=== PATIENT | male | born 1970 | race Caucasian/White ===

== ENCOUNTER 2017-06-24 04:51 | Emergency (ER) | payer BC ==
[2017-06-24] MEDS ORDERED: SODIUM CHLORIDE 0.9% 1,000 ML IV STA (04:54)
[2017-06-24 04:59] VITALS: RESP 18; TEMP 97.8
[2017-06-24 05:08] LABS: Glucose,Whole Blood 101 mg/dL (75-99)
[2017-06-24] MEDS ORDERED: diphenhydrAMINE 50 MG/ML 1 ML VIAL IVP STA (05:11)
--- NOTE | 2017-06-24 05:15 | ED ---
General Adult HPI - General Chief complaint: Altered Mental Status Stated complaint: Seizure Time Seen by Provider: 06/24/17 04:54 Source: patient, RN notes reviewed Mode of arrival: EMS Limitations: altered mental status - History of Present Illness Initial comments: 46-year-old male history of bipolar depression presents for evaluation of altered mental status. Patient called EMS, he had an episode where he cannot feel he was in his right mind, according to family members she was curled up in a ball in the basement. He does have history of bipolar depression, he is on lithium and antipsychotic medications. He does use edible marijuana, he admits to taking a full dose of edible marijuana earlier in the evening. According to EMS, patient has had tremor and involuntary movements throughout transport. Vital signs were stable. Patient has no pain complaints. Denies headache. Denies vision changes. Denies any focal weakness. According to EMS there was concern for seizure activity, patient didn't appear postictal after the generalized shaking and abnormal movements. - Related Data Home Medications Medication Instructions Recorded Confirmed Unable To Assess [Unable to Assess] 06/24/17 06/24/17 Allergies Allergy/AdvReac Type Severity Reaction Status Date / Time No Known Allergies Allergy Verified 06/24/17 04:59 Review of Systems ROS Statement: Those systems with pertinent positive or pertinent negative responses have been documented in the HPI. ROS Other: All systems not noted in ROS Statement are negative. Past Medical History Additional Past Medical History / Comment(s): brain lesions History of Any Multi-Drug Resistant Organisms: None Reported Past Surgical History: Unable to Obtain Past Psychological History: Bipolar Smoking Status: Former smoker Past Alcohol Use History: None Reported Past Drug Use History: None Reported General Exam Limitations: altered mental status General appearance: lethargic Head exam: Present: atraumatic, normocephalic Eye exam: Present: normal appearance, PERRL, EOMI ENT exam: Present: mucous membranes dry Neck exam: Present: normal inspection. Absent: tenderness, meningismus Respiratory exam: Present: normal lung sounds bilaterally. Absent: respiratory distress Cardiovascular Exam: Present: regular rate, normal rhythm GI/Abdominal exam: Present: soft. Absent: distended, tenderness Extremities exam: Present: normal inspection, normal capillary refill. Absent: pedal edema Neurological exam: Present: alert, oriented X3, CN II-XII intact, other (No focal deficits, patient does have dystonic movements of the jaw and tongue.). Absent: motor sensory deficit Skin exam: Present: warm, dry, intact. Absent: cyanosis, diaphoretic Course Vital Signs 06/24/17 04:54 Temperature 97.8 F Pulse Rate 76 Respiratory 18 Rate Blood Pressure 124/84 O2 Sat by Pulse 96 Oximetry - Reevaluation(s) Reevaluation #1: 06/24/17 06:29 On reevaluation, patient is complaining of jaw pain, no other complaints. Patient is accompanied by sister who lives with him and helps take care of him. He does have a psychiatrist, as well as a neurologist that he follows with. Patient movements are chronic, he has known dystonic reaction to his psychiatric medications. According to his sister these are at baseline. EKG Findings - EKG Comments: EKG Findings:: EKG shows normal sinus rhythm, ventricular rate 77, AK interval 176, castration 80, QTC 427, no signs of arrhythmia or ischemia Medical Decision Making - Medical Decision Making 46-year-old male presents with abnormal movements, and episodes of generalized shaking. Patient is alert during these episodes, low suspicion for seizure activity. Laboratory studies are obtained which show normal CBC, lithium level which is therapeutic, electrolytes within normal limits, lactic acid is normal. This goes against tonic-clonic seizure. Head CT negative for acute intracranial pathology. Patient has good outpatient follow-up. According to his sister, he's had episodes similar to this in the past 3 days, days without sleeping and then he sleeps for 16-18 hours. Patient and his sister would prefer to be discharged so he can rest, he will follow-up with his neurologist and psychiatrist. Return with any worsening or changing symptoms. - Lab Data Result diagrams: 06/24/17 05:02 06/24/17 05:02 Lab Results 06/24/17 06/24/17 06/24/17 Range/Units 05:02 05:02 05:02 WBC 9.3 (3.8-10.6) k/uL RBC 5.08 (4.30-5.90) m/uL Hgb 16.1 (13.0-17.5) gm/dL Hct 49.3 (39.0-53.0) % MCV 97.1 (80.0-100.0) fL MCH 31.8 (25.0-35.0) pg MCHC 32.7 (31.0-37.0) g/dL RDW 12.3 (11.5-15.5) % Plt Count 419 (150-450) k/uL Neutrophils % 42 % Lymphocytes % 42 % Monocytes % 7 % Eosinophils % 5 % Basophils % 1 % Neutrophils # 3.9 (1.3-7.7) k/uL Lymphocytes # 3.9 (1.0-4.8) k/uL Monocytes # 0.6 (0-1.0) k/uL Eosinophils # 0.5 (0-0.7) k/uL Basophils # 0.1 (0-0.2) k/uL Sodium 144 (137-145) mmol/L Potassium 4.4 (3.5-5.1) mmol/L Chloride 106 (98-107) mmol/L Carbon Dioxide 25 (22-30) mmol/L Anion Gap 13 mmol/L BUN 20 (9-20) mg/dL Creatinine 1.10 (0.66-1.25) mg/dL Est GFR (MDRD) Af Amer >60 (>60 ml/min/1.73 sqM) Est GFR (MDRD) Non-Af >60 (>60 ml/min/1.73 sqM) Glucose 111 H (74-99) mg/dL POC Glucose (mg/dL) (75-99) mg/dL POC Glu Administrative Assistant Data Entry ID Plasma Lactic Acid Leif 1.6 (0.7-2.0) mmol/L Calcium 9.7 (8.4-10.2) mg/dL Total Bilirubin 0.3 (0.2-1.3) mg/dL AST 24 (17-59) U/L ALT 47 (21-72) U/L Alkaline Phosphatase 83 (38-126) U/L Total Protein 7.5 (6.3-8.2) g/dL Albumin 4.5 (3.5-5.0) g/dL [place] 0.6 mmol/L Serum Alcohol <10 mg/dL 06/24/17 Range/Units 05:02 WBC (3.8-10.6) k/uL RBC (4.30-5.90) m/uL Hgb (13.0-17.5) gm/dL Hct (39.0-53.0) % MCV (80.0-100.0) fL MCH (25.0-35.0) pg MCHC (31.0-37.0) g/dL RDW (11.5-15.5) % Plt Count (150-450) k/uL Neutrophils % % Lymphocytes % % Monocytes % % Eosinophils % % Basophils % % Neutrophils # (1.3-7.7) k/uL Lymphocytes # (1.0-4.8) k/uL Monocytes # (0-1.0) k/uL Eosinophils # (0-0.7) k/uL Basophils # (0-0.2) k/uL Sodium (137-145) mmol/L Potassium (3.5-5.1) mmol/L Chloride (98-107) mmol/L Carbon Dioxide (22-30) mmol/L Anion Gap mmol/L BUN (9-20) mg/dL Creatinine (0.66-1.25) mg/dL Est GFR (MDRD) Af Amer (>60 ml/min/1.73 sqM) Est GFR (MDRD) Non-Af (>60 ml/min/1.73 sqM) Glucose (74-99) mg/dL POC Glucose (mg/dL) 101 H (75-99) mg/dL POC Glu Administrative Assistant Data Entry ID Gualberto, Angeline Plasma Lactic Acid Leif (0.7-2.0) mmol/L Calcium (8.4-10.2) mg/dL Total Bilirubin (0.2-1.3) mg/dL AST (17-59) U/L ALT (21-72) U/L Alkaline Phosphatase (38-126) U/L Total Protein (6.3-8.2) g/dL Albumin (3.5-5.0) g/dL [place] mmol/L Serum Alcohol mg/dL Disposition Clinical Impression: Sleep deprivation, Dystonic drug reaction Disposition: HOME SELF-CARE Condition: Fair Instructions: Tremors (ED), Insomnia (ED) Additional Instructions: Please follow up with her neurologist, return with any worsening or changing symptoms. Referrals: Robin Manzanares MD [Primary Care Provider] - 1-2 days Time of Disposition: 06:32
[2017-06-24 05:19] LABS: Basophils # (A) 0.1 k/uL (0-0.2); Basophils % (A) 1 %; Eosinophils # (A) 0.5 k/uL (0-0.7); Eosinophils % (A) 5 %; HCT 49.3 % (39.0-53.0); HGB 16.1 gm/dL (13.0-17.5); Lymphocytes # (A) 3.9 k/uL (1.0-4.8); Lymphocytes % (A) 42 %; MCH 31.8 pg (25.0-35.0); MCHC 32.7 g/dL (31.0-37.0); MCV 97.1 fL (80.0-100.0); Mean Platelet Volume 6.3; Monocytes # (A) 0.6 k/uL (0-1.0); Monocytes % (A) 7 %; Neutrophils # (A) 3.9 k/uL (1.3-7.7); Neutrophils % (A) 42 %; Platelet Count 419 k/uL (150-450); RBC 5.08 m/uL (4.30-5.90); RDW 12.3 % (11.5-15.5); WBC 9.3 k/uL (3.8-10.6)
[2017-06-24 05:32] LABS: ALT 47 U/L (21-72); AST 24 U/L (17-59); Albumin 4.5 g/dL (3.5-5.0); Alcohol <10 mg/dL; Alkaline Phosphatase 83 U/L (38-126); Anion Gap 13 mmol/L; Blood Urea Nitrogen 20 mg/dL (9-20); Calcium 9.7 mg/dL (8.4-10.2); Carbon Dioxide 25 mmol/L (22-30); Chloride 106 mmol/L (98-107); Glucose 111 mg/dL (74-99); Lithium 0.6 mmol/L; Potassium 4.4 mmol/L (3.5-5.1); Sodium 144 mmol/L (137-145); Total Bilirubin 0.3 mg/dL (0.2-1.3); Total Protein 7.5 g/dL (6.3-8.2)
--- NOTE | 2017-06-24 05:58 | CT ---
EXAM: CT Head Without Intravenous Contrast CLINICAL HISTORY: ITS.REASON CT Reason: seizure activity TECHNIQUE: Axial computed tomography images of the head/brain without intravenous contrast. CTDI is 60.3 mGy and DLP is 1993.8 mGy-cm. This CT exam was performed using one or more of the following dose reduction techniques: automated exposure control, adjustment of the mA and/or kV according to patient size, and/or use of iterative reconstruction technique. COMPARISON: No relevant prior studies available. FINDINGS: Brain: No hemorrhage. No acute cortical infarct. No mass effect or midline shift. Ventricles: Unremarkable. Bones/joints: Unremarkable. Soft tissues: Unremarkable. Sinuses: Minimal sinus disease. Mastoid air cells: Unremarkable as visualized. IMPRESSION: No acute intracranial process. MRI may be considered to further assess if clinically indicated.
[2017-06-24 06:53] VITALS: BP 111/60; PULSE 72
[2017-06-24 07:00] LABS: Amphetamine Screen,Urine Not Detected (NotDetected); Barbiturate Screen,Urine Not Detected (NotDetected); Benzodiazepines Screen,Urine Not Detected (NotDetected); Cocaine Screen,Urine Not Detected (NotDetected); Methadone Screen, Urine Not Detected (NotDetected); Opiate Screen,Urine Not Detected (NotDetected); Oxycodone Screen, Urine Not Detected (NotDetected); Phencyclidine Screen,Urine Not Detected (NotDetected); Tricyclic Antidepressant,Urine Detected (NotDetected); Urn Cannabinoid Scrn Detected (NotDetected)
== END 2017-06-24 06:53 | disposition home or self-care (01) ==
LOC: EC 04:51 → SUPCPDRO 04:51 → EC 06:53
DX: G24.09 Other drug induced dystonia (principal); T50.995A Adverse effect of other drugs, medicaments and biological substances, initial encounter; Z72.820 Sleep deprivation; F31.9 Bipolar disorder, unspecified; Z87.891 Personal history of nicotine dependence
CPT/HCPCS: 36415; 93005; 80053; 83605; 80178; 85025; 80306; 80320; 70450; 99285; 96374; 96361 ×2; J1200

== ENCOUNTER → 2017-07-09 | Outpatient (CLI) | payer BC | END | disposition home or self-care (01) | LOC: LABWHC1 09:01 | PROVIDERS: ATTEND Psychiatry & Neurology Psychiatry | DX: F31.9 Bipolar disorder, unspecified (principal) | CPT/HCPCS: 36415; 80178 ==

== ENCOUNTER 2017-11-08 21:31 | Emergency (ER) | payer BC ==
[2017-11-08 21:49] VITALS: TEMP 98.2
[2017-11-08] MEDS ORDERED: LORazepam 2 MG/ML INJ IM STA (22:23)
[2017-11-08] MEDS ORDERED: ZIPRASIDONE 20 MG VIAL IM STA (22:23)
--- NOTE | 2017-11-08 22:24 | ED ---
Psych HPI - General Chief Complaint: Psychiatric Symptoms Stated Complaint: mental health Time Seen by Provider: 11/08/17 22:08 Source: patient, family, RN notes reviewed, old records reviewed Mode of arrival: ambulatory - History of Present Illness Initial Comments: This patient's a 46-year-old male with history of bipolar disorder presents emergency department today with chief complaint of miguel. He reports that today he saw spiders crawling over. Has been hearing voices. He reports that he has been maintained on his medications for quite some time and taken the medication as prescribed. Patient states that usually the symptoms will start to occur. Slept in quite some time. He slept normally last night. He states he will call feeling as if there are bugs crawling all over him. Patient reports he did drink alcohol today. He does see a psychiatrist. - Related Data Home Medications Medication Instructions Recorded Confirmed Unable To Assess [Unable to Assess] 06/24/17 06/24/17 Allergies Allergy/AdvReac Type Severity Reaction Status Date / Time Penicillins Allergy Unknown Verified 11/08/17 21:49 Review of Systems ROS Statement: Those systems with pertinent positive or pertinent negative responses have been documented in the HPI. ROS Other: All systems not noted in ROS Statement are negative. Past Medical History Additional Past Medical History / Comment(s): brain lesions History of Any Multi-Drug Resistant Organisms: None Reported Past Surgical History: Joint Replacement, Orthopedic Surgery Past Psychological History: ADD/ADHD, Anxiety, Bipolar, Depression, Panic Disorder, PTSD Smoking Status: Former smoker Past Alcohol Use History: None Reported, Occasional Past Drug Use History: Marijuana General Exam - General Exam Comments Initial Comments: Referring male. Very agitated and manic. He states around the room. Limitations: no limitations General appearance: alert, in no apparent distress Head exam: Present: atraumatic, normocephalic, normal inspection Eye exam: Present: normal appearance, PERRL, EOMI. Absent: scleral icterus, conjunctival injection, periorbital swelling ENT exam: Present: normal exam, mucous membranes moist Neck exam: Present: normal inspection. Absent: tenderness, meningismus, lymphadenopathy Respiratory exam: Present: normal lung sounds bilaterally. Absent: respiratory distress, wheezes, rales, rhonchi, stridor Cardiovascular Exam: Present: regular rate, normal rhythm, normal heart sounds. Absent: systolic murmur, diastolic murmur, rubs, gallop, clicks GI/Abdominal exam: Present: soft, normal bowel sounds. Absent: distended, tenderness, guarding, rebound, rigid Neurological exam: Present: alert, oriented X3, CN II-XII intact Psychiatric exam: Present: agitated, manic (Patient is manic Patient room. He reports that he's been hearing voices, seeing spiders control over them.). Absent: normal affect, normal mood Skin exam: Present: warm, dry, intact, normal color. Absent: rash Course Vital Signs 11/08/17 11/09/17 21:44 02:00 Temperature 98.2 F Pulse Rate 118 H 69 Respiratory 20 18 Rate Blood Pressure 140/80 134/77 O2 Sat by Pulse 96 94 L Oximetry Medical Decision Making - Medical Decision Making 46-year-old male presents emergency Department quite manic. He is pacing around the room. There are bugs crawling on him. He also drinks alcohol today. He multiple psychiatric medications. Patient was given Ativan and Geodon to stabilize him. His to calm him down and he was resting comfortably in bed. After he was sober he is evaluated by EPS. He is calm at this point. He reports he has a psychiatry appointment tomorrow with psychiatrist. His family also agrees with this. Patient was evaluated EPS and is not suicidal or homicidal. The that he would be stable for discharge and close follow-up with his psychiatrist. I discussed that if he has any worsening symptoms or any miguel and to return here to return to emergency department. Discussed not mix alcohol with the medications as well. Patient agrees treatment plan will comply. Return parameters were discussed. - Lab Data Lab Results 11/08/17 Range/Units 23:40 Urine Opiates Screen Not Detected (NotDetected) Ur Oxycodone Screen Not Detected (NotDetected) Urine Methadone Screen Not Detected (NotDetected) Ur Propoxyphene Screen Not Detected (NotDetected) Ur Barbiturates Screen Not Detected (NotDetected) U Tricyclic Antidepress Not Detected (NotDetected) Ur Phencyclidine Scrn Not Detected (NotDetected) Ur Amphetamines Screen Not Detected (NotDetected) U Methamphetamines Scrn Not Detected (NotDetected) U Benzodiazepines Scrn Not Detected (NotDetected) Urine Cocaine Screen Not Detected (NotDetected) U Marijuana (THC) Screen Detected H (NotDetected) Disposition Clinical Impression: Manic behavior, Elevated ETOH level Disposition: HOME SELF-CARE Condition: Good Instructions: Mood Disorders (ED) Additional Instructions: Follow-up with your psychiatrist appointment tomorrow. Return to the emergency department if any alarming signs or symptoms occur. Is patient prescribed a controlled substance at d/c from ED?: No When asked, does pt state using other controlled substances?: No If prescribed controlled substance>3 days was MAPS reviewed?: No If opioid is for acute pain is fill amount 7 days or less?: No If Rx opioid, was Start Talking consent form obtained?: No Referrals: Robin Manzanares MD [Primary Care Provider] - 1-2 days Time of Disposition: 04:11
[2017-11-09 00:11] LABS: Amphetamine Screen,Urine Not Detected (NotDetected); Barbiturate Screen,Urine Not Detected (NotDetected); Benzodiazepines Screen,Urine Not Detected (NotDetected); Cocaine Screen,Urine Not Detected (NotDetected); Methadone Screen, Urine Not Detected (NotDetected); Opiate Screen,Urine Not Detected (NotDetected); Oxycodone Screen, Urine Not Detected (NotDetected); Phencyclidine Screen,Urine Not Detected (NotDetected); Tricyclic Antidepressant,Urine Not Detected (NotDetected); Urn Cannabinoid Scrn Detected (NotDetected)
[2017-11-09 04:27] VITALS: BP 140/101; PULSE 79; RESP 17
== END 2017-11-09 04:27 | disposition home or self-care (01) ==
LOC: EC 21:31
DX: F30.9 Manic episode, unspecified (principal); R78.0 Finding of alcohol in blood; R44.0 Auditory hallucinations; R44.1 Visual hallucinations; R45.1 Restlessness and agitation; Z87.891 Personal history of nicotine dependence; Z88.2 Allergy status to sulfonamides
CPT/HCPCS: 82075; 80306; 99284; 96372 ×2; J2060; J3486

== ENCOUNTER → 2017-12-14 | Outpatient (CLI) | payer BC | END | disposition home or self-care (01) | LOC: LABWHC1 06:45 | PROVIDERS: ATTEND Psychiatry & Neurology Psychiatry | DX: F31.63 Bipolar disorder, current episode mixed, severe, without psychotic features (principal) | CPT/HCPCS: 36415; 80178 ==

== ENCOUNTER 2018-05-02 06:18 | Emergency (ER) | payer BC ==
[2018-05-02 06:30] VITALS: TEMP 97.8
--- NOTE | 2018-05-02 07:10 | XR ---
EXAMINATION TYPE: XR chest 2V DATE OF EXAM: 05/02/2018 COMPARISON: NONE HISTORY: Chest pain and cough TECHNIQUE: Frontal and lateral views of the chest are obtained. FINDINGS: There is no focal air space opacity, pleural effusion, or pneumothorax seen. The cardiac silhouette size is within normal limits. The osseous structures are intact. IMPRESSION: No acute cardiopulmonary process.
[2018-05-02] MEDS ORDERED: ACET/COD 300 MG/30 MG STARTER PACK 6 TAB BTL PO STA (07:25)
--- NOTE | 2018-05-02 07:26 | ED ---
URI HPI - General Chief Complaint: Upper Respiratory Infection Stated Complaint: Cough, Rib Pain Time Seen by Provider: 05/02/18 07:04 Source: patient, RN notes reviewed Mode of arrival: ambulatory Limitations: no limitations - History of Present Illness Initial Comments: 47-year-old male presents emergency Department chief complaint of rib pain on the left. Patient states she's had a cough or month and a half. Patient was placed on antibiotics and did improve his symptoms. Patient states he saw a residual dry cough with no shortness of breath. Patient states that he coughed so hard this morning felt a pop. He states that it is worse with movement and deep inspiration. Patient states she's had no recent fevers or chills no headache no dizziness. Patient is a nonsmoker denies any prior lung disease - Related Data Previous Rx's Medication Instructions Recorded Ibuprofen [Motrin] 600 mg PO Q8HR PRN #30 tab 05/02/18 predniSONE 50 mg PO DAILY #5 tab 05/02/18 Allergies Allergy/AdvReac Type Severity Reaction Status Date / Time Penicillins Allergy Unknown Verified 05/02/18 06:29 Review of Systems ROS Statement: Those systems with pertinent positive or pertinent negative responses have been documented in the HPI. ROS Other: All systems not noted in ROS Statement are negative. Past Medical History Past Medical History: No Reported History Additional Past Medical History / Comment(s): brain lesions History of Any Multi-Drug Resistant Organisms: None Reported Past Surgical History: Orthopedic Surgery Additional Past Surgical History / Comment(s): left shoulder, right shoulder, left index finger, left knee, right hip. Past Psychological History: ADD/ADHD, Anxiety, Bipolar, Depression, Panic Disorder, PTSD Smoking Status: Former smoker Past Alcohol Use History: None Reported, Occasional Past Drug Use History: Marijuana General Exam Limitations: no limitations General appearance: alert, in no apparent distress Head exam: Present: atraumatic, normocephalic, normal inspection Eye exam: Present: normal appearance, PERRL, EOMI. Absent: scleral icterus, conjunctival injection, periorbital swelling ENT exam: Present: normal exam, normal oropharynx, mucous membranes moist, TM's normal bilaterally Neck exam: Present: normal inspection, full ROM. Absent: tenderness, meningismus, lymphadenopathy Respiratory exam: Present: normal lung sounds bilaterally, chest wall tenderness. Absent: respiratory distress, wheezes, rales, rhonchi, stridor Cardiovascular Exam: Present: regular rate, normal rhythm, normal heart sounds. Absent: systolic murmur, diastolic murmur, rubs, gallop, clicks GI/Abdominal exam: Present: soft, normal bowel sounds. Absent: distended, tenderness, guarding, rebound, rigid Neurological exam: Present: alert Skin exam: Present: warm, dry, intact, normal color. Absent: rash Course Vital Signs 05/02/18 06:25 Temperature 97.8 F Pulse Rate 87 Respiratory 28 H Rate Blood Pressure 166/128 O2 Sat by Pulse 99 Oximetry Medical Decision Making - Medical Decision Making 47-year-old male presented for left-sided rib pain. Patient has reproducible rib tenderness. Patient has symptoms consistent with costochondritis, postinfectious cough. Patient placed on prednisone, given pain medication. Patient will be discharged Disposition Clinical Impression: Costochondritis, acute, Rib pain on left side Narrative: Postinfectious cough Disposition: HOME SELF-CARE Condition: Stable Instructions: Costochondritis (ED) Additional Instructions: Please return to the Emergency Department if symptoms worsen or any other concerns. Prescriptions: Ibuprofen [Motrin] 600 mg PO Q8HR PRN #30 tab PRN Reason: Pain predniSONE 50 mg PO DAILY #5 tab Is patient prescribed a controlled substance at d/c from ED?: No Referrals: None,Stated [Primary Care Provider] - 1-2 days Time of Disposition: 07:26
[2018-05-02 07:37] VITALS: BP 142/104; PULSE 85; RESP 17
== END 2018-05-02 07:37 | disposition home or self-care (01) ==
LOC: EC 06:18
DX: M94.0 Chondrocostal junction syndrome [Tietze] (principal); R05 Cough; Z87.891 Personal history of nicotine dependence; Z88.0 Allergy status to penicillin
CPT/HCPCS: 71046; 99283